=== PATIENT | male | born 1955 | race African-American/Black ===

== ENCOUNTER 2020-12-31 16:28 | Emergency (ER) | payer OTHER, SELFPAY ==
--- NOTE | ~2020-12-31 | XR_ITS ---
EXAMINATION: XR chest 2V DATE: 12/31/2020 16:48 INDICATION: Left chest pain. TECHNIQUE: Frontal and lateral views of the chest were obtained. COMPARISON: None. FINDINGS: The chest demonstrates clear lungs without pneumonia, pleural effusion, or pneumothorax. Th e heart size is normal. IMPRESSION: 1. No acute cardiopulmonary disease. Reviewed, dictated and finalized at location B.
[2020-12-31 16:40] VITALS: BP 186/100; PULSE 94; RESP 20; TEMP 37.2; O2SAT 100
--- NOTE | 2020-12-31 16:47 | ED.GENADULT ---
HPI - General Adult General Chief complaint: Back Pain/Injury Stated complaint: Side Pain Time Seen by Provider: 12/31/20 16:38 Source: patient and RN notes reviewed Mode of arrival: ambulatory Limitations: no limitations History of Present Illness HPI narrative: 65-year-old -[place] male presents with complaints of left anterior-lateral rib cage pain for the past 2-3 weeks. Tyrell reports increasing left lower back pain today. No known injury. Tylenol pm last today at 16:00 without relief. Denies new injuries or falls. Denies radiating pain, numbness, or tingling. Denies fever or chills. No upper or lower extremity pain or weakness. Exacerbating factors consist of certain movements. Denies nausea, vomiting, or abdominal pain. Tolerating po intake well. Denies problems with urinating or having a bowel movement, LBM 12/30/2020 per patient and normal. No hematuria or dysuria. Remains active. The patient reports he have not been diagnosed with COVID-19. The patient reports he is not waiting for the results of a COVID-19 lab test. The patient reports he do not have weakness or fatigue. The patient reports he do not have a new or worsening cough or shortness of breath. Denies chest pain. The patient reports he do not have any rhinorrhea, congestion, loss of taste or smell, sore throat, and diarrhea. Denies recent traveling. Denies concerns for COVID-19 or exposures been home with limited outdoor exposure except for essential household needs, work, and return home. At this time, patient is not suspected of having COVID-19. Some parts of this dictation were generated by voice recognition software and may contain typographical and/or grammatical inaccuracies. Related Data Allergies Allergy/AdvReac Type Severity Reaction Status Date / Time No Known Allergies Allergy Mild Verified 12/31/20 16:35 Review of Systems Review of Systems: Narrative: CONSTITUTIONAL: Denies fever, chills, sweats. EYES: Denies visual changes, redness, discharge. ENT: Denies rhinorrhea, congestion, sore throat, otalgia. CARDIOVASCULAR: Denies chest pain, palpitations, edema. RESPIRATORY: Denies dyspnea, wheezing, cough. GASTROINTESTINAL: Denies abdominal pain, nausea, vomiting, diarrhea. GENITOURINARY: Denies dysuria, hematuria, abnormal discharge. SKIN: Denies rash or itching. MUSCULOSKELETAL: Complains of T anterior-lateral rib cage pain. Denies acute back pain, joint pain or myalgia. NEUROLOGIC: Denies numbness or focal weakness. PSYCHIATRIC: Denies anxiety or depression. All systems reviewed & are unremarkable except as noted in HPI and below PMFSH Past Medical History Medical History (Updated 01/01/21 @ 00:01 by Katina Avendaño) No significant past medical history Surgical History Surgical History (Updated 12/31/20 @ 17:13 by CLINTON Guan) History of foot surgery Bilateral achilles surgery Family History Family History (Updated 12/31/20 @ 17:14 by CLINTON Guan) Father Heart disease Mother Diabetes mellitus Social History Social History (Updated 12/31/20 @ 17:14 by CLINTON Guan) Smoking status: Never smoker Tobacco type: cigarettes Second hand tobacco smoke exposure: No Alcohol intake: never Substance use: never Living arrangements: with family Occupation/Education: occupation Gender identity (if verbalized by the patient): Male Sexual Orientation (if Verbalized by the Patient): Straight or Heterosexual Comments At time of signature, agree with nurse past medical, surgical, social, and family history. There is no relevant family history pertinent to the presenting complaint. Exam Narrative: Exam Narrative: GENERAL: This is a well-nourished, well-developed patient, in no apparent distress. Talks in full sentences without deficits and ambulates with slow steady gait without dyspnea. HEAD: Normocephalic, atraumatic. EYES: PERRL. Sclera clear/white. Vision
[2020-12-31] MEDS: KETOROLAC (*BKC) 60 MG/2 ML VIAL IM (17:10)
[2020-12-31 17:30] VITALS: BP 194/100; PULSE 100; O2SAT 100
== END 2020-12-31 17:40 | disposition home or self-care (01) ==
PROVIDERS: Emergency Provider Nurse Practitioner Family; PCP Family Medicine
DX: R10.9 Unspecified abdominal pain (principal); M54.5 Low back pain
CPT/HCPCS: 71046; 81003; 96372; 99213; G0463; J1885